=== PATIENT | female | born 1950 | race African-American/Black ===

== ENCOUNTER → 2016-11-22 | Outpatient (CLI) | payer OTHER ==
--- NOTE | ~2016-11-22 | S ---
[facility] [place] [address] SURGICAL PATH RPT PROCEDURE Name: BAY ORNELAS Room #: REG [facility].#: [id number] Admission: 11/22/16 Date of : 54 Discharge: Report #: [id number] Path Case #: [id number] PATHOLOGY REPORT COLLECTION DATE: 11/22/2016 RECEIVED DATE: 11/22/2016 SUBMITTING PHYS: Dr. Antwan Lo OTHER PHYS: Dr. Amanda Chen SPECIMEN(S) RECEIVED: A.Rt superior thyroid B.Lt mid anterior thyroid * * * * * * * * * * * * FINAL DIAGNOSIS: A. Thyroid, right superior thyroid, needle core biopsy: - Thyroid parenchyma lined by attenuated follicular cells showing a mixed macro and microfollicular architecture. - Negative for nuclear features of papillary thyroid carcinoma. - No definite capsule identified. B. Thyroid, left mid anterior, needle core biopsy: - Thyroid parenchyma lined by attenuated follicular cells showing a mixed macro and microfollicular architecture. - Negative for nuclear features of papillary thyroid carcinoma. - No definite capsule identified. COMMENT: Findings are suggestive of an adenomatoid nodule. Nuclear features of papillary thyroid carcinoma are not present. Scattered rare foci of mild chronic inflammation are present. Please note sample represents a minute portion of a larger lesion and may not be small business representative. The concurrent cytology ([id number]) showed similar findings. Please see separate report to follow. (IUV:mgr; d/t: 11/23/16) PATHOLOGIST: Kiersten Burdick M.D. REPORT ELECTRONICALLY SIGNED BY: Kiersten Burdick M.D. DATE/TIME: 11/23/2016 16:26 * * * * * * * * * * * * GROSS PATHOLOGY: A. The specimen is received in formalin, labeled "Bay Ornel[place] and right superior FNA biopsy." Received is a 0.8 x 0.2 x 0.2 cm aggregate of blood-tinged, white-pollard, and rubbery soft tissue fragments. The specimen is entirely submitted in cassette A1. B. The specimen is received in formalin, labeled "Bay Ornelas and [address] [place] [address] SURGICAL PATH RPT PROCEDURE Name: BAY ORNELAS R [facility] [id number] Admission: 11/22/16 Date of : 54 Discharge: Report #: [id number] Path Case #: [id number] left mid anterior FNA biopsy." Received is a 1.0 x 0.2 x 0.2 cm aggregate of blood-tinged, white-pollard, and rubbery soft tissue fragments. The specimen is entirely submitted in cassette B1. (TTL; 11/22/2016) CLINICAL HISTORY: bilateral thyroid nodules INITIAL CPT CODE(S): A; 58367 B; 92332 Professional services performed by [facility] at [address], [place] [address] Technical services performed by [facility] at [address] [place] [address], [address], [place] [address]. [facility] [address] [place] [address] PHONE: [phone] DIRECTOR: Shane Gr M.D. * * * END OF REPORT * * *
--- NOTE | ~2016-11-22 | CNG ---
[facility] [place] [address] CYTO-NONGYN REPORT PROCEDURE Name: BAY MORENO Room #: REG [facility].#: [id number] Admission: 11/22/16 Date of : 54 Discharge: Report #: [id number] Path Case #: [id number] CYTOPATHOLOGY REPORT COLLECTION DATE: 11/22/2016 RECEIVED DATE: 11/22/2016 SUBMITTING PHYS: Dr. Amanda Chen OTHER PHYS: CLINICAL HISTORY: Bilateral thyroid nodule FNA See also [id number] SPECIMEN(S) RECEIVED: A.Fine needle aspiration, Right superior thyroid B.Fine needle aspiration, Left mid anterior thyroid * * * * * * * * * * * * FINAL DIAGNOSIS: A. Thyroid, Right superior thyroid, Fine needle aspiration: BETHESDA CATEGORY II. SPECIMEN CONSISTS OF ABUNDANT BENIGN FOLLICULAR CELLS AND ABUNDANT COLLOID, FAVOR ADENOMATOID NODULE. B. Thyroid, Left mid anterior thyroid, Fine needle aspiration: BETHESDA CATEGORY II. SPECIMEN CONSISTS OF ABUNDANT BENIGN FOLLICULAR CELLS AND ABUNDANT COLLOID, FAVOR ADENOMATOID NODULE. Comment: Nuclear features of papillary thyroid carcinoma are not identified. Please note sample represents a minute portion of a larger lesion and may not be food products sales representative. Correlate clinically and follow-up as indicated. The concurrent biopsy [id number] showed similar findings. Please see separate report. PATHOLOGIST: Kiersten Burdick M.D. REPORT ELECTRONICALLY SIGNED BY: Kiersten Burdick M.D. DATE/TIME: 11/23/2016 15:41 * * * * * * * * * * * * GROSS PATHOLOGY: A. Fine needle aspiration, Right superior thyroid: The specimen is labeled "Bay Moreno" and consists of 4 fixed slides, 4 air dried slides, and 20 mL of pink material in Preservcyt from the needle rinse is also submitted and one ThinPrep slide and cell block were prepared from this material. RNARetain vial received. ([facility] 11.22.2016) B. Fine needle aspiration, Left mid anterior thyroid The specimen is labeled "Bay Moreno" and consists of 4 fixed slides, 4 air dried slides, and 20 mL of pink material in Preservcyt from the needle rinse is also submitted and one ThinPrep slide and cell block were prepared from this material. RNARetain vial received. ([facility] 11.22.2016) [address] [place] [address] CYTO-NONGYN REPORT PROCEDURE Name: BAY MORENO [id number] Admission: 11/22/16 Date of : 54 Discharge: Report #: [id number] Path Case #: [id number] REGISTERED MIDWIFE(S): EVELYNE Norwood(ASCP), [facility] INITIAL CPT CODE(S): A; 09150, 50670 B; 94009, 62543 Professional services performed by [facility] at [facility] [address], [place] [address] Technical services performed by [facility] at [address] [place] [address]., [address], [place] [address]. [facility] [address] [place] [address], [address] [place] [address] PHONE: [phone] DIRECTOR: Shane Gr M.D. * * * END OF REPORT * * *
== END ==
LOC: ULTRA 11-15 10:36
DX: E04.2 Nontoxic multinodular goiter (principal)

== ENCOUNTER → 2017-11-06 | Outpatient (CLI) | payer OTHER ==
[~2017-11-06] VITALS: Ht 154.9 cm; Wt 66.7 kg
[~2017-11-06] MED LIST: AMLODIPINE BESY10 MG PO; ATENOLOL-CHLOR1 EACH PO; CHILDREN'S ASPI81 M1 PO; CRESTOR5 MG PO; FLEXERIL PO; LEVOTHYROXINE25 MCG PO; LISINOPRIL40 MG PO; NITROFURANTOIN100 MG PO; TRAMADOL 50 MG50 MG PO; VITAMIN D2000 UNIT PO
--- NOTE | ~2017-11-06 | HPC ---
[facility] [place] [address] PAIN MANAGEMENT CONSULTATION Name: BAY ORNELAS Room #: REG [facility].#: [id number] Admission: 11/06/17 Attend Phys: Tommy Toledo MD Discharge: Date of : 54 Report #: [id number] THIS REPORT FOR: //name// CC: Amanda Toledo DATE OF SERVICE: 11/06/2017 CHIEF COMPLAINT: Right leg pain. HISTORY OF PRESENT ILLNESS: The patient is a 67-year-old female who has been referred to the pain clinic for evaluation of pain in her leg. She has been experiencing pain in the right buttocks with pain radiating down into the right posterior portion of her leg, thigh and into the calf. She was told that she has some narrowing in the lower portion of her back. She has had an MRI, which showed that narrowing. She has tried conventional medications and has been using tramadol, Flexeril and other nonsteroidal medications to help without long-term benefit. ALLERGIES: METFORMIN, LIPITOR. CURRENT MEDICATIONS: Flexeril 10 mg t.i.d., nitrofurantoin 100 mg b.i.d., 81 mg aspirin, vitamin D3, tramadol 50 mg 1 every 4 hours p.r.n. pain, lisinopril 40 mg, amlodipine 10 mg, atenolol/chlorthalidone 50/25 daily, levothyroxine 25 mcg, Crestor 5 mg. PAST MEDICAL HISTORY: Hypothyroidism, hypertension, low back pain, hyperlipidemia, thyroid nodule, heart murmur, benign, diet-controlled, diabetes, gout, osteopenia. PAST SURGICAL HISTORY: Tonsillectomy at age 23 years, tubes have been tied at age 37 after her fourth baby. 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 Continues to smoke cigarettes ten packs over the past 10 years, one half pack per day. Denies use of alcoholic beverages. She is . The patient has been counseled to decrease use of tobacco. FAMILY HISTORY: Mother is , has hypertension, CVA, diabetes, breast cancer. Father of myocardial infarct, hypertension, and at age 54. Maternal grandmother , paternal grandmother . Sister had myocardial infarct, age 47. Younger brother and sister with diabetes. Sister of MA at age 55. REVIEW OF SYSTEMS: Questionnaire in the chart indicate generally good health [address] [address] PAIN MANAGEMENT CONSULTATION Name: BAY ORNELAS [facility] [id number] Admission: 11/06/17 Attend Phys: Tommy Toledo MD Discharge: Date of : 54 Report #: [id number] and wears glasses, thyroid disease, diabetes, non-insulin. LABORATORY DATA: MRI of the lumbar spine dated 02/27/2017 reveals #1, L3-L4 disk bulge with facet hypertrophy and ligamentum thickening resulting in [id number] central canal stenosis of the central canal narrowing as well as left foraminal narrowing. #2, L4-L5 disk bulge and symmetry right lateral foraminal disk protrusion or extrusion in conjunction with marked hypertrophic facet point degenerative disease and ligamentum flavum thickening causes severe central canal stenosis and lateral recess stenosis as well as marked right foraminal narrowing with compression upon the exiting right L4 nerve root and perineural fat. #3, L5-S1 disk bulge with an osteophyte right paracentral protrusion with facet hypertrophy causes severe central canal stenosis and bilateral foraminal narrowing, impression: Degenerative disk disease with facet arthropathy and ligamentum flavum hypertrophy, results in severe spinal stenosis at L4-L5 and L5-S1 as well as right foraminal encroachment at L4-L5. PAIN CLINIC ASSESSMENT: 1. Arthritic changes in the lower back. 2. Height 5 feet 1. Weight 147 pounds, BMI is 27.8. 3. Vital signs: Blood pressure 115/65, pulse 75, respiratory rate 16, room air saturation is 100. 4. Pain intensity 8/10. 5. Fall risk. The patient has not fallen in the last 3 months. 6. Blood thinner. The patient is not on blood thinner. 7. History of hypertension. The patient is being treated for hypertension. 8. Opioid therapy greater than 6 weeks. The patient is not on an opioid contract. 9. Risk assessment tool. 10. Functional assessment tool. 11. Recreational drug use. The patient denies use of recreational drugs. 12. Tobacco: The patient smokes daily one half pack per day, has smoked for the last 10 years. 13. Alcohol frequency. The patient denies use of frequent use of alcohol. PHYSICAL EXAMINATION: GENERAL: The patient is a well-developed black female. She appears her stated age. ORIENTATION: The patient is alert and oriented x 3. AFFECT: The patient's affect is appropriate. HEAD, EYES, EARS, NOSE, AND THROAT: Normocephalic, atraumatic. Extraocular eye muscles intact. Hearing is within normal limits. Buccal membranes are moist, conjunctiva is clear. NECK: Without adenopathy or JVD. HEART: Regular rate. ABDOMEN: Nontender. MUSCULOSKELETAL: Without significant scoliosis, kyphosis or lordosis. Upper extremities strength is to be 5/5 for the major muscle groups with symmetry. 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 The patient has positive straight leg raise on the lower extremities with pain radiating down into the right posterior L5-S1 nerve root distribution. She is able to stand on her toes on her heels. Left and right lateral bending, left and right lateral rotation were noted some soreness in the low back area. IMPRESSION: 1. Lumbar radiculopathy in the L5-S1 area on the right side with MRI showing spinal stenosis at this level. 2. Urinary tract infection. The patient has been given a medication Macrodantin to take for the next few days. She has about 3 more days to go on this treatment course. 3. Hypothyroidism. 4. Hypercholesterolemia. 5. Hypertension. 6. Noninsulin dependent diabetes. RECOMMENDATIONS: We discussed treatment options with the patient. She does have clinical findings consistent with spinal stenosis with radiculopathy. She is experiencing pain, which radiates down the posterior portion of her leg. It is impacting her activities of daily living. She is being treated for urinary tract infection at this juncture. She has a prescription for Macrodantin. We will finish this and after she has been cleared or told that she is okay by her primary, we would then proceed with an epidural steroid injection. We described the procedure to the patient. We explained that steroids can decrease one's ability to fight off infection. Once her urinary tract problems have been resolved, we would then proceed with an epidural steroid injection. We have explained that cortisone medications can increase blood sugar levels. She will then monitor blood sugar and make sure that it does not become problematic at a high level. She will follow up in the near future. The patient will also continue to decrease her use of tobacco. We explained the pathophysiology of tobacco smoking with back pain and back issues. By: [id number] Tommy Toledo MD /[facility]
[2017-11-06 12:52] VITALS: BP 115/65
== END ==
LOC: PAIN 07:08
DX: M54.16 Radiculopathy, lumbar region (principal); N39.0 Urinary tract infection, site not specified; E03.9 Hypothyroidism, unspecified; E78.00 Pure hypercholesterolemia, unspecified; I10 Essential (primary) hypertension; E11.9 Type 2 diabetes mellitus without complications; M85.80 Other specified disorders of bone density and structure, unspecified site; Z88.8 Allergy status to other drugs, medicaments and biological substances

== ENCOUNTER → 2017-11-22 | Outpatient (CLI) | payer OTHER ==
[~2017-11-22] VITALS: Ht 154.9 cm; Wt 65.8 kg
--- NOTE | ~2017-11-22 | HPC ---
[facility] [place] [address] PAIN MANAGEMENT CONSULTATION Name: BAY ORNELAS Room #: REG [facility]#: [id number] Admission: 11/22/17 Attend Phys: Tommy Toledo MD Discharge: Date of : 54 Report #: [id number] THIS REPORT FOR: //name// CC: Amanda Toledo DATE OF SERVICE: 11/22/2017 CHIEF COMPLAINT: Right leg pain. FOLLOWUP HISTORY: The patient is a 67-year-old female who has been seen in the pain clinic because of lumbar radiculopathy. She has been experiencing pain which is radiating down the lower portion of her back. It involves her buttocks. Notes that the pain has been quite problematic. It also involves her posterior thigh and calf. She had an MRI, which showed some narrowing in the lower portion of her back. She has tried conventional treatment with tramadol, Flexeril and other nonsteroidal anti-inflammatory medication without significant improvement. She has been given precertification by her insurance company that which she can proceed now with an epidural steroid injection. She feels that her pain continues to be problematic. She would like to proceed with the treatment. ALLERGIES: METFORMIN, LIPITOR. PAIN ASSESSMENT 1. The patient is not being treated for osteoarthritis or rheumatoid arthritis. 2. Height 5 feet 1 inch, weight 145 pounds, BMI is 27. 3. Vital signs, blood pressure 145/88, pulse 90, respiratory rate 14 and room air saturation is 100. 4. Pain intensity 5/10. 5. Fall risk. The patient has not fallen in the last 3 months. 6. Blood thinner, the patient is not on a blood thinner. 7. History of hypertension. The patient is being treated for hypertension. 8. Opioid therapy greater than 6 weeks. The patient is not on opioid therapy contract. 9. Risk assessment, low for opioid 0/3. 10. Functional assessment tool 51/70 indicating significant improved problems with pain regarding activities of daily living. 11. Drug recreational use. The patient denies use of recreational drugs. 12. Tobacco: The patient admits to a 10-year smoking history, smokes one-half pack of cigarettes per day. 13. Alcohol, patient smokes or drinks 1 alcoholic beverage on occasion. PHYSICAL EXAMINATION: GENERAL: The patient is a well-developed black female. She appears her stated [facility] [address] [place] [address] PAIN MANAGEMENT CONSULTATION Name: BAY ORNELAS Room #: REG [facility]#: [id number] Admission: 11/22/17 Attend Phys: Tommy Toledo MD Discharge: Date of : 54 Report #: [id number] age. She is alert and oriented x 3. Her affect is appropriate. Speech is fluent. HEENT: Normocephalic, atraumatic. Extraocular eye muscles intact. Sclerae not injected. Hearing is within normal limits. Mucous membranes are moist. NECK: Without JVD or adenopathy. Good range of motion. HEART: Regular rate, normal S1, S2. ABDOMEN: Nontender. MUSCULOSKELETAL: Without significant scoliosis, kyphosis or lordosis. Upper extremity strength is judged to be 5/5 for the major muscle groups of the upper extremity with symmetry. Recep strength 5/5, lower extremity. The patient has a positive straight leg raise. Has pain and discomfort, which is radiating down the right leg into the posterior L5-S1 nerve root distribution. Able to stand on her toes, able to stand on her heels. Left and right lateral bending, left and right lateral rotation cause some soreness in the low back area with some increased pain and discomfort in the right buttocks area and the posterior portion of her leg. IMPRESSION: 1. Lumbar radiculopathy in the L5-S1 area on the right with MRI findings showing spinal stenosis at this level. 2. History of urinary tract infection. The patient has completed her UTI antibiotic regimen. She has returned for treatment. 3. Hypothyroidism. 4. Hypercholesterolemia. 5. Hypertension. 6. Non-insulin dependent diabetes. RECOMMENDATIONS: We discussed treatment options with the patient. Risks and benefits of the spinal injection were again discussed. The patient has returned for this. States that her UTI has resolved. She would like to proceed with an epidural steroid injection. We again discussed the possible complication of the procedure, which could include but are not limited to infection, increased muscle soreness, headache, bleeding, worsening of pain, nerve damage, spinal headache. The patient elects to proceed. PROCEDURE NOTE: The patient was taken to the procedure area. She was then assisted in getting on the fluoroscopy table. Her back was sterilely prepped with a Betadine solution. A 0.25% bupivacaine was infiltrated at the L5-S1 area. This needle placement was corroborated using anterior, posterior as well as lateral use of fluoroscopy. After the appropriate place was noted. A 0.25% bupivacaine was infiltrated. A 17-gauge Tuohy with loss of resistance technique was used to gain access to the epidural space. There was no CSF, heme or paresthesia. Total of 80 mg Depo-Medrol, 40 mg triamcinolone and 2 mL of 0.25% bupivacaine was injected. The patient tolerated the procedure well. There were no complications. She remained in the pain clinic for an appropriate amount of time. Her pain decreased from 5 at the time of her arrival to 0 at the time of [facility] [address] [place] [address] PAIN MANAGEMENT CONSULTATION Name: CECIBAYLisa ESCOTO Room #: REG [facility] [place]#: [id number] Admission: 11/22/17 Attend Phys: Tommy Toledo MD Discharge: Date of : 54 Report #: [id number] her discharge. She had a total fluoro time of 14 seconds. We would like to thank you for letting us participate in her care. We hope she continues to improve. By: [id number] Tommy Toledo MD /[facility]ess[facility]
[2017-11-22 10:27] VITALS: BP 145/88
== END | disposition home or self-care (01) ==
LOC: PAIN 07:05
DX: M54.16 Radiculopathy, lumbar region (principal); M48.061 Spinal stenosis, lumbar region without neurogenic claudication; I10 Essential (primary) hypertension; E11.9 Type 2 diabetes mellitus without complications; E03.9 Hypothyroidism, unspecified; E78.00 Pure hypercholesterolemia, unspecified; F17.210 Nicotine dependence, cigarettes, uncomplicated; Z88.8 Allergy status to other drugs, medicaments and biological substances; Z87.440 Personal history of urinary (tract) infections; Z79.899 Other long term (current) drug therapy; Z79.82 Long term (current) use of aspirin

== ENCOUNTER → 2017-12-13 | Outpatient (CLI) | payer OTHER ==
[~2017-12-13] VITALS: Ht 152.4 cm; Wt 65.8 kg
--- NOTE | ~2017-12-13 | HPC ---
[facility] [place] [address] PAIN MANAGEMENT CONSULTATION Name: BAY ORNELASA Room #: REG VEL [facility]avinderMelyssa.#: [id number] Admission: 12/13/17 Attend Phys: Tommy Toledo MD Discharge: Date of : 54 Report #: [id number] THIS REPORT FOR: //name// CC: Amanda Toledo DATE OF SERVICE: 12/13/2017 FOLLOW-UP COMPLAINT: Leg cramps and muscle cramps in the right leg and foot. FOLLOW-UP HISTORY: The patient is a 67-year-old female who has been seen in the Pain Clinic because of chronic pain involving her low back with pain radiating down to her legs. She continues to have pain, which she rates as a 5/10. She continues to have some muscle spasms. It involves the posterior portion of her thigh and calf. She has tried nonsteroidal anti-inflammatory medications. She has some mcfk-iz-koyglygc central canal stenosis in the L3-L4 areas. At the L4-L5 areas, there is some foraminal disc protrusion with marked ____ degenerative disease and ligamentum flavum thickening causing severe central canal stenosis and lateral recess compression. The patient has undergone an epidural steroid injection and gleaned some benefit from this. She feels that there was some benefit from the injections and has returned for another injection. ALLERGIES: METFORMIN, LIPITOR. PAIN CLINIC ASSESSMENT: 1. Osteoarthritic changes in the lower portion of the back/lumbar areas as presented in the MRI. 2. Height 5 feet, weight 145 pounds, BMI 28. 3. Vital signs, blood pressure 125/81, pulse 90, respiratory rate 16, room air saturations 100. 4. Pain intensity /10. 5. Fall risk. The patient has not fallen in the last 3 months. 6. Blood thinner. The patient is not on a blood thinner. 7. History of hypertension. The patient is being treated for hypertension. 8. Opioid therapy. The patient has not been treated for opioid therapy on a regular basis. 9. Risk assessment tool. 0 out of 3 which is low risk for opioid use. 10. Functional assessment tool. 51 out of 70 showing moderate problems with activities of daily living secondary to the pain. 11. Recreational drug use. The patient denies use of recreational drugs. 12. Tobacco use. The patient is a current smoker on a daily basis, one-half pack of cigarettes per day and has smoked for 30 years. 13. Alcohol. The patient generally drinks about 1 glass of wine monthly. PHYSICAL EXAMINATION: [facility] [address] [place] [address] PAIN MANAGEMENT CONSULTATION Name: BAY ORNELAS Room #: REG [facility]#: [id number] Admission: 12/13/17 Attend Phys: Tommy Toledo MD Discharge: Date of : 54 Report #: [id number] GENERAL: The patient is a well-developed black female. She appears her stated age. She is alert and oriented x 3. Her affect is appropriate. Speech is fluent. HEENT: Normocephalic, atraumatic. Extraocular eye muscles intact. Sclerae nonicteric. Hearing is within normal limits. Mucous membranes are moist. NECK: Without JVD or adenopathy. Good range of motion. HEART: Regular rate. S1, S2. CHEST: Clear to auscultation, without rhonchi or rales. ABDOMEN: Nontender. MUSCULOSKELETAL: Without significant scoliosis, kyphosis or lordosis. The patient has 5/5 muscle strength to the upper extremity. Lower extremity, the patient has pain and discomfort radiating down the right leg in the L5-S1 nerve root distribution. Able to stand on her toes and heels. Left and right lateral bending, left and right lateral rotation causes some increased discomfort in the lower back area. IMPRESSION: 1. Lumbar radiculopathy in the L5-S1 distribution on the right with MRI findings showing spinal stenosis at this level. 2. History of urinary tract infection, which has resolved. 3. Hypothyroidism. 4. Hypercholesterolemia. 5. Hypertension. 6. Scb-dahhmhw-vvkqhiemo diabetes. RECOMMENDATIONS: We discussed treatment options with the patient. Risks and benefits of an epidural steroid injection were again discussed. Possible complications of this and use of steroid for pain improvement were discussed. Possibility of increased blood sugars were discussed. Possible complications of the procedure, which could include again infection, increased muscle soreness, headaches, bleeding, paresis, spinal headache were discussed. The patient elects to proceed. PROCEDURE NOTE: The patient was taken to the procedure room. She was assisted in getting on the fluoroscopy table. Her back was sterilely prepped with Betadine solution. Fluoroscopy was used in the anterior, posterior as well as lateral positioning to place the medication in the appropriate placement. Her right paraspinous area was sterilely prepped, 0.25% bupivacaine was infiltrated at the L5-S1 area. A 17-gauge Tuohy with loss of resistance technique was used to gain access to the epidural space. There was no CSF, heme or paresthesia. A total of 80 mg Depo-Medrol, 40 mg triamcinolone and 2 mL of 0.25% bupivacaine was injected. The patient tolerated the procedure well. There were no complications. A total of 9 seconds fluoroscopy time was used. The patient's pain score was 2 at the time of discharge. She will follow up in the future as needed. [facility] [address] [place] [address] PAIN MANAGEMENT CONSULTATION Name: BAY ORNELAS Room #: REG GIANNA Melissa#: [id number] Admission: 12/13/17 Attend Phys: Tommy Toledo MD Discharge: Date of : 54 Report #: [id number] We would like to thank you for letting us participate in her care. We hope she continues to improve. By: [id number] Tommy Toledo MD /nt
[2017-12-13 10:38] VITALS: BP 125/81
== END | disposition home or self-care (01) ==
LOC: PAIN 10:19
DX: M51.16 Intervertebral disc disorders with radiculopathy, lumbar region (principal); Z88.8 Allergy status to other drugs, medicaments and biological substances; M19.90 Unspecified osteoarthritis, unspecified site; I10 Essential (primary) hypertension; F11.20 Opioid dependence, uncomplicated; F17.210 Nicotine dependence, cigarettes, uncomplicated; E03.9 Hypothyroidism, unspecified; E78.00 Pure hypercholesterolemia, unspecified; E11.9 Type 2 diabetes mellitus without complications

== ENCOUNTER → 2018-08-15 | Outpatient (CLI) | payer OTHER ==
[~2018-08-15] VITALS: Ht 152.4 cm; Wt 64.8 kg
[~2018-08-15] MED LIST changes: +NEURONTIN 300300 M1 PO
--- NOTE | ~2018-08-15 | HPC ---
[facility] [place] [address] PAIN MANAGEMENT CONSULTATION Name: BAY ORNELAS [facility] [id number] Admission: 08/15/18 Attend Phys: Tommy Toledo MD Discharge: Date of : 54 Report #: [id number] THIS REPORT FOR: //name// CC: Amanda Toledo DATE OF SERVICE: 08/15/2018 CHIEF COMPLAINT: Leg cramps, muscle cramps with pain radiating down into the right foot with weakness. HISTORY: The patient is a 67-year-old female who has been seen in the pain clinic because of low back pain with pain that is radiating down into her legs. She has noticed the pain as a 5/10. Continues to note some muscle spasms. Involves the posterior portion of her leg and radiates down the posterior portion into her calf. She has tried nonsteroidal anti-inflammatory medications. She finds that her pain continues to be problematic. Has had some findings of a spinal stenosis at the L3-L4 area as well as the L4-L5 areas. Has had some severe central canal stenosis with recess compression in the low back area. The patient has undergone epidural steroid injection in the past and gleaned benefits from these. She retained feels that another injection would be beneficial and has returned for that cause today. ALLERGIES: METFORMIN, LIPITOR. CURRENT MEDICATIONS: Flexeril 10 mg 1 p.o. t.i.d., aspirin 81 mg, vitamin D 2000 units, Ultram 50 mg every 4-6 hours p.r.n., Zestril 40 mg, amlodipine 10 mg 1 p.o. daily, atenolol/chlorthalidone 50/25, levothyroxine 25 mcg, Crestor 5 mg. PAIN CLINIC ASSESSMENT/PQRS: 1. History of osteoarthritis. The patient is not being treated for osteoarthritis or rheumatoid arthritis. 2. Height 5 feet 0 inches, weight 142 pounds, BMI is 27.9. 3. Vital signs: Blood pressure 145/91, pulse 94, respiratory rate 16, room air saturation is 100%. 4. Pain intensity 02/18. 5. Fall risk. The patient has not fallen in the last 3 months. 6. Blood thinner. The patient is not on a blood thinning medication. 7. Hypertension. The patient is being treated for hypertension. 8. Opioid greater than 6 weeks. The patient is not on opioid regimen. Risk assessment tool 0/3 low for opioid use. 9. Functional assessment tool 51/70. 10. Recreational drug use. The patient denies use of recreational drugs. 11. Tobacco: The patient smokes cigarettes and has smoked less than a pack of cigarettes per day. We discussed the risks and benefits of cigarettes. We explained the benefits of smoking cessation with the patient. [address] [address] PAIN MANAGEMENT CONSULTATION Name: BAY ORNELAS Room #: REG [facility]#: [id number] Admission: 08/15/18 Attend Phys: Tommy Toledo MD Discharge: Date of : 54 Report #: [id number] 12. Alcohol: The patient occasionally drinks alcoholic beverages. PHYSICAL EXAMINATION: GENERAL: The patient is a well-developed, well-nourished black female. She appears her stated age. She is alert and oriented x 3. Affect is appropriate. Speech is fluent. HEENT: Normocephalic, atraumatic. Extraocular eye muscles intact. Sclerae nonicteric. Mucous membranes are moist. NECK: Without adenopathy or JVD. HEART: Regular rate. S1, S2. LUNGS: Clear to auscultation without rhonchi or rales. ABDOMEN: Nontender. Bowel sounds present. MUSCULOSKELETAL: Without significant scoliosis, kyphosis or lordosis. The patient has muscle strength in the upper extremity, 5/5 for the major muscle groups in the upper extremity. The patient has pain and discomfort in lower portion of her back with pain that is radiating down the L5-S1 dermatomal distribution on the right with sensory changes and weakness in this area. The patient has a positive straight leg raise. IMPRESSION: 1. Lumbar radiculopathy, L5-S1 distribution on the right with MRI findings showing spinal stenosis at this level. 2. History of urinary tract infections, resolved. 3. Hypothyroidism. 4. Hypercholesterolemia. 5. Hypertension. 6. Non-insulin dependent diabetes-borderline. RECOMMENDATIONS: We discussed treatment options with the patient. Risks and benefits of an epidural steroid injection were again reviewed. They could include but are not limited to infection, worsening of pain, no improvement in pain and the patient elects to proceed. Again, we discussed the possible complications, which could be an elevation of blood sugars associated with the steroid medication. We discussed the possible complications of spinal headache, bleeding, worsening of pain, no improvement in pain. At this juncture, he is having pain and would like to proceed. She also is somewhat stressed. Her daughter is at [facility] in process of giving . Her daughter has dilated to 9. The patient baby is not moving. She will probably go over there after the injection. PROCEDURE NOTE: The patient was taken to the procedure area. She is assisted in getting on the examination table. A pillow was placed under her abdomen to bolster improve positioning. Her back was sterilely prepped with a Betadine solution. Anterior, posterior as well as lateral viewing with a fluoroscopy machine was provided. The patient's back was sterilely prepped with a Betadine solution. At the L5-S1 area midline approach using the right paraspinous [facility] [address] [place] [address] PAIN MANAGEMENT CONSULTATION Name: BAY ORNELAS Room #: REG [facility].#: [id number] Admission: 08/15/18 Attend Phys: Tommy Toledo MD Discharge: Date of : 54 Report #: [id number] approach was undertaken. After appropriate placement 0.25% bupivacaine was infiltrated. A 17-gauge Tuohy was placed in the appropriate placement for the injection. A total of 80 mg Depo-Medrol, 40 mg triamcinolone and 2 mL of 0.25% bupivacaine was injected. The patient tolerated the procedure well. There were no complications. The patient's pain decreased from 7-1 at the time of discharge. She will follow up in the future as needed. We would like to thank you for letting us participate in her care. We hope she continues to improve. By: [id number] Tommy Toledo MD /nt
[2018-08-15 09:58] VITALS: BP 145/91
--- NOTE | 2018-08-15 10:10 | NUR ---
Pain Clinic Assessment: 1. History of Osteoarthritis: Not Applicable History of Rheumatoid Arthritis: Not Applicable 2. Height: 5 ft. 0 in. 152.4 cm. Weight: 142.8 lb. oz. 64.774 kg. Patient's BMI: 27.9 3. Vital Signs: BP: 145/91 Pulse: 94 Resp: 16 Temp: 02 Sat: 100 ECG Mon: 4. Pain Intensity: 7 5. Fall Risk: Dizziness: N Needs help standing or walking: N Fallen in the last 3 months: N Fall risk comments: 6. Patient on Blood Thinner: None 7. History of Hypertension: Y 8. Opioid Therapy greater than 6 weeks: N Opiate Contract Signed: 9. Risk Assessment Tool Provided: LOW RISK 0/3 10. Functional Assessment Tool: / 11. Recreational Drug Use: Never Drug Type: Tobacco Use: Current Every Day Smoker Tobacco Type: Cigarettes Amount or Packs/day: <1 How Many Years: Alcohol Use: Yes Frequency: Quant:
== END | disposition home or self-care (01) ==
LOC: PAIN 07:18
DX: M48.061 Spinal stenosis, lumbar region without neurogenic claudication (principal); I10 Essential (primary) hypertension; E78.00 Pure hypercholesterolemia, unspecified; E03.9 Hypothyroidism, unspecified; F17.210 Nicotine dependence, cigarettes, uncomplicated; Z87.440 Personal history of urinary (tract) infections; Z79.899 Other long term (current) drug therapy; Z88.8 Allergy status to other drugs, medicaments and biological substances; Z79.82 Long term (current) use of aspirin

== ENCOUNTER → 2018-12-24 | Outpatient (CLI) | payer OTHER | LOC: ULTRA 12-23 13:06 | DX: E04.2 Nontoxic multinodular goiter (principal) ==

== ENCOUNTER → 2019-03-06 | Outpatient (CLI) | payer OTHER ==
[~2019-03-06] VITALS: Ht 152.4 cm; Wt 64.6 kg
--- NOTE | ~2019-03-06 | HPC ---
[facility] [place] [address] PAIN MANAGEMENT CONSULTATION Name: BAY ORNELAS Room #: REG [facility].#: [id number] Admission: 03/06/19 ������������������ Attend Phys: Tommy Toledo MD Discharge: ������������������ Date of : 54 Report #: [id number] THIS REPORT FOR: //name// CC: Amanda Toledo DATE OF SERVICE: 03/06/2019 CHIEF COMPLAINT: "Still having pain in my back and down into my leg." FOLLOWUP HISTORY: The patient is a 68-year-old female who has been seen in the pain clinic because of lumbar radicular pain associated with spinal stenosis. The patient states that she is having pain that continues to be problematic. It involves her low back and radiates down into both legs. Notes some discomfort in both feet. Has a pressure and squeezing sensation in the posterior portion of her legs. She describes it as a burning, aching discomfort. Notes that walking, standing, all exacerbate her discomfort. If she sits down after about 5 minutes, her pain improves. She has a history of spinal stenosis in her low back. ALLERGIES: METFORMIN, LIPITOR. CURRENT MEDICATIONS: Flexeril 10 mg 1 p.o. t.i.d., aspirin 81 mg, vitamin D3, vitamin D 2000 units, lisinopril 40 mg b.i.d., amlodipine 10 mg, atenolol/chlorthalidone, 50/25, levothyroxine 25 mcg, Crestor 5 mg. PAIN CLINIC ASSESSMENT AND PQRS: 1. History of osteoarthritis. The patient is not being treated for osteoarthritis or rheumatoid arthritis. 2. Height 5 feet 0 inches, weight 142 pounds, BMI is 27.8. 3. Vital signs; blood pressure 113/67, pulse 75, respiratory rate 16, room air saturation 100%. 4. Pain intensity 08/21. 5. Fall history. The patient has not fallen in the last 3 months. 6. Blood thinner. The patient is not on a blood thinning medication. 7. Hypertension. The patient is being treated for hypertension. 8. Opioids greater than 6 weeks. The patient is not on a regular opioid regimen. 9. Opioids risk, low risk for opioid use. 10. Functional assessment tool, . 11. Recreational drug use. The patient denies. 12. Tobacco: The patient smokes daily, less than a pack of cigarettes per day. 13. Alcohol: The patient denies frequent use of alcoholic beverages. PHYSICAL EXAMINATION: GENERAL: The patient is a well-developed, well-nourished [place] female, [place] [address] PAIN MANAGEMENT CONSULTATION Name: BAY ORNELAS Room #: REG [facility].#: [id number] Admission: 03/06/19 ������������������ Attend Phys: Tommy Toledo MD Discharge: ������������������ Date of : 54 Report #: [id number] her stated age. She is alert and oriented x 3. Her affect is appropriate. Speech is fluent. HEENT: Normocephalic, atraumatic. Extraocular eye muscles intact. Sclerae nonicteric. Mucous membranes are moist. NECK: Without adenopathy or JVD. HEART: Regular rate. S1, S2. LUNGS: Clear to auscultation without rhonchi or rales. The patient does get a little bit choked up while swallowing and cough a bit, but lungs generally clear. ABDOMEN: Nontender. Bowel sounds present. MUSCULOSKELETAL: Without significant kyphosis or lordosis. The patient does walk with a slight lean to the left. There is a slight antalgic component to her gait. Complains of pain that is radiating down the lower portion of her back in the L4-L5 and L5-S1 dermatomal distribution, left as well as right. Positive straight leg raise. IMPRESSION: 1. Lumbar radiculopathy with L5-S1 dermatomal distribution with MRI findings showing spinal stenosis at the L5-S1 area and L4-L5 area. 2. History of urinary tract infections. 3. Hypothyroidism. 4. Hypercholesterolemia. 5. Hypertension. 6. Non-insulin dependent diabetes -- borderline. RECOMMENDATIONS: We discussed treatment options with the patient. At this juncture, she has noticed a worsening of her pain. It involves the lower portion of her back. The patient notes that if she goes shopping she holds onto the cart. This improves her ability to navigate. She notes that her pain becomes more problematic and often times has to sit and rest. After about 5 minutes, she notes the pain subsides and she is able to resume. She feels that her pain has worsened over the last few months. Her last injection was in August, which she noted benefit greater than 50%. She feels that another injection would be beneficial and has returned today with a desire to undergo an injection. We explained to her the need for precertification from her insurance carrier. The patient has undergone physical therapy, has had an MRI and has used nonsteroidal anti-inflammatory medications. Continues to have pain that radiates down the L5-S1 area. She has positive straight leg raise. This is on the right. We would like to thank you for letting us participate in her care. When she returns, we will proceed with an epidural injection. ��������������������������������������������� ���������������������������������������� By: ��������������������������������������������� [id number] MD ERAN Da Silva
[2019-03-06 11:30] VITALS: BP 113/67
--- NOTE | 2019-03-06 11:46 | NUR ---
Pain Clinic Assessment: 1. History of Osteoarthritis: Not Applicable History of Rheumatoid Arthritis: Not Applicable 2. Height: 5 ft. 0 in. 152.4 cm. Weight: 142.4 lb. oz. 64.592 kg. Patient's BMI: 27.8 3. Vital Signs: BP: 113/67 Pulse: 75 Resp: 16 Temp: 02 Sat: 100 ECG Mon: 4. Pain Intensity: 1 5. Fall Risk: Dizziness: N Needs help standing or walking: N Fallen in the last 3 months: N Fall risk comments: 6. Patient on Blood Thinner: None 7. History of Hypertension: Y 8. Opioid Therapy greater than 6 weeks: N Opiate Contract Signed: 9. Risk Assessment Tool Provided: LOW RISK 0/3 10. Functional Assessment Tool: 51/70 11. Recreational Drug Use: Never Drug Type: Tobacco Use: Current Every Day Smoker Tobacco Type: Cigarettes Amount or Packs/day: LESS 1 PK How Many Years: Alcohol Use: No Frequency: Quant:
== END ==
LOC: PAIN 06:46
DX: M54.16 Radiculopathy, lumbar region (principal); M19.90 Unspecified osteoarthritis, unspecified site; I10 Essential (primary) hypertension; E03.9 Hypothyroidism, unspecified; E78.00 Pure hypercholesterolemia, unspecified; E11.9 Type 2 diabetes mellitus without complications; Z87.440 Personal history of urinary (tract) infections; Z79.891 Long term (current) use of opiate analgesic; Z88.8 Allergy status to other drugs, medicaments and biological substances; Z79.899 Other long term (current) drug therapy

== ENCOUNTER → 2019-04-10 | Outpatient (CLI) | payer OTHER ==
[~2019-04-10] VITALS: Ht 152.4 cm; Wt 64.6 kg
[~2019-04-10] MED LIST changes: +NEURONTIN 300M300 M2 PO; +NEURONTIN800 MG PO
[2019-04-10 10:17] VITALS: BP 136/78
--- NOTE | 2019-04-10 10:21 | NUR ---
Pain Clinic Assessment: 1. History of Osteoarthritis: Not Applicable History of Rheumatoid Arthritis: Not Applicable 2. Height: 5 ft. 0 in. 152.4 cm. Weight: 142.4 lb. oz. 64.592 kg. Patient's BMI: 27.8 3. Vital Signs: BP: 136/78 Pulse: 90 Resp: 20 Temp: 02 Sat: 100 ECG Mon: 4. Pain Intensity: 2 5. Fall Risk: Dizziness: N Needs help standing or walking: N Fallen in the last 3 months: N Fall risk comments: 6. Patient on Blood Thinner: None 7. History of Hypertension: Y 8. Opioid Therapy greater than 6 weeks: N Opiate Contract Signed: 9. Risk Assessment Tool Provided: LOW RISK 0/3 10. Functional Assessment Tool: 11. Recreational Drug Use: Never Drug Type: Tobacco Use: Former Smoker Tobacco Type: Cigarettes Amount or Packs/day: 1/2 How Many Years: Alcohol Use: No Frequency: Quant:
== END | disposition home or self-care (01) ==
LOC: PAIN 03-20 09:23
DX: M54.16 Radiculopathy, lumbar region (principal); G89.29 Other chronic pain; Z87.891 Personal history of nicotine dependence; Z88.8 Allergy status to other drugs, medicaments and biological substances; Z79.82 Long term (current) use of aspirin; Z79.899 Other long term (current) drug therapy